=== PATIENT | female | born 1975 | race Caucasian/White ===

== ENCOUNTER 2021-12-20 13:57 | Outpatient (REF) | payer OTHER, SELFPAY ==
--- NOTE | 2021-12-20 16:59 | PFT_ITS ---
FLOWS: FEV1 122% of predicted at 3.06 L. FVC 121% of predicted at 3.78 L. FEV1 to FVC ratio of 0.81. No bronchodilator response. LUNG VOLUMES: Total lung capacity 122% of predicted at 5.46 L. Residual volume 106% of predicted at 1.64 L. Slow vital capacity 131% of predicted at 3.82 L. Expiratory reserve volume 47% of predicted at 0.44 L. Diffusion capacity is normal. IMPRESSION: No obstructive or restrictive ventilatory defect. No bronchodilator response. Essentially normal pulmonary function test. Vladimir Cason MD AP/MODL / [id number]
== END 2021-12-20 13:58 | disposition home or self-care (01) ==
LOC: HO.RESP 13:57
PROVIDERS: PCP Internal Medicine; Visit Provider Hospitalist
DX: J45.40 Moderate persistent asthma, uncomplicated (principal)
CPT/HCPCS: 94060; 94727; 94729

== ENCOUNTER → 2022-01-12 10:55 | Outpatient (BNVA) | payer OTHER, SELFPAY | PROVIDERS: PCP Internal Medicine; Visit Provider Hospitalist | DX: Z23 Encounter for immunization (principal); J45.40 Moderate persistent asthma, uncomplicated; J30.89 Other allergic rhinitis; L30.9 Dermatitis, unspecified; Z80.1 Family history of malignant neoplasm of trachea, bronchus and lung | CPT/HCPCS: 90471; 90677 ==

== ENCOUNTER 2023-02-16 14:20 | Outpatient (AMB) | payer OTHER, SELFPAY ==
[2023-02-16 14:28] VITALS: PULSE 76; O2SAT 97; BMI 33.6
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
== END 2023-02-16 14:41 | disposition home or self-care (01) ==
PROVIDERS: PCP Internal Medicine; Visit Provider Hospitalist
DX: J45.40 Moderate persistent asthma, uncomplicated (principal); J30.89 Other allergic rhinitis; L30.9 Dermatitis, unspecified; Z80.1 Family history of malignant neoplasm of trachea, bronchus and lung
CPT/HCPCS: 99214

== ENCOUNTER → 2023-02-16 14:20 | Outpatient (BNVA) | payer OTHER, SELFPAY | PROVIDERS: PCP Internal Medicine; Visit Provider Hospitalist | DX: J45.40 Moderate persistent asthma, uncomplicated (principal); J30.89 Other allergic rhinitis; L30.9 Dermatitis, unspecified; Z80.1 Family history of malignant neoplasm of trachea, bronchus and lung; Z79.899 Other long term (current) drug therapy; Z23 Encounter for immunization | CPT/HCPCS: 90471; 90686 ==

== ENCOUNTER 2024-02-22 14:23 | Outpatient (AMB) | payer OTHER, SELFPAY ==
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
[2024-02-22 14:30] VITALS: BP 122/70; PULSE 70; O2SAT 98
== END 2024-02-22 15:08 | disposition home or self-care (01) ==
PROVIDERS: PCP Internal Medicine; Visit Provider Hospitalist
DX: J45.40 Moderate persistent asthma, uncomplicated (principal); J30.89 Other allergic rhinitis; L30.9 Dermatitis, unspecified; Z80.1 Family history of malignant neoplasm of trachea, bronchus and lung; Z23 Encounter for immunization
CPT/HCPCS: 99214

== ENCOUNTER → 2024-02-22 14:23 | Outpatient (BNVA) | payer OTHER, SELFPAY | PROVIDERS: PCP Internal Medicine; Visit Provider Hospitalist | DX: J45.40 Moderate persistent asthma, uncomplicated (principal); J30.89 Other allergic rhinitis; L30.9 Dermatitis, unspecified; Z80.1 Family history of malignant neoplasm of trachea, bronchus and lung; Z23 Encounter for immunization | CPT/HCPCS: 90471; 90656 ==

== ENCOUNTER 2025-01-14 14:13 | Outpatient (AMB) | payer OTHER, SELFPAY ==
[2025-01-14 14:19] VITALS: BP 112/82; PULSE 78; O2SAT 99; BMI 32.6
--- NOTE | 2025-01-14 14:19 | A.OFFVIS_ITS ---
Vital Signs 01/14/25 14:19 Height 5 ft Weight 167 lb 1.766 oz BMI 32.6 BP 112/82 Blood Pressure Location Lt brachial Position Sitting Pulse 78 Pulse Source Pulse Oximeter Pulse Oximetry (%) 99 Oxygen Delivery Method Room Air Intake Visit Reasons: Diabetes Intake Note: New patient externally referred by PCP for T2DM. Last Diabetic Eye exam: Last exam was in 12/2024 Last Podiatry Visit: Doesn't have one Random Glucose: 94 mg/dl Hgb A1C: 5.7% Signals Intelligence Analysis Manager Required: No Accompanied by: Self / Same As Patient Allergies No Known Allergies Allergy (Verified 01/14/25 14:24) HPI Comments Details: 49-year-old female with a past medical history of prediabetes, anxiety, asthma, hyperlipidemia , PCOS presenting for new patient visit for prediabetes. Her mother has type 2 diabetes. Patient says she has had prediabetes for over 20 years. Previously prescribed metformin which was discontinued due to diarrhea. Patient is not exercising, but she has did start following a low-carbohydrate diet mid September 2024 after A1c increased to 6.4%. She limits portion sizes. She drinks very little alcohol, and she does not smoke. She had a lap band procedure in 2007 which was subsequently removed due to digestive issues. She had a gastric sleeve in 2018 or 2019. Followed by Cardiology for early history of coronary artery disease. She had a negative nuclear stress test. She has a history of IBS so she would like to avoid medications for diabetes if at all possible, and her hemoglobin A1c decreased to 5.7% today. I reviewed labs on her phone which showed creatinine was 1.03 when last checked, and this is normal. In March 2024 LDL cholesterol was 78, total cholesterol 150, HDL 55 and triglycerides 94. ROS: Constitutional: No unexplained weight loss, fever, chills, fatigue or night sw eats. Respiratory: No shortness of breath Cardiovascular: No chest pain Genitourinary: No dysuria, hematuria, urinary frequency. Neurologic: No numbness in the extremities. She has occasional intermittent tingling in toes. This has improved. Skin: No rash Endocrine: No cold or heat intolerance. No polyuria or polydipsia. Physical exam: Constitutional: Alert, in no distress. Neck: Supple, Full range of motion. No lymphadenopathy. No palpable thyroid masses. Respiratory: Clear to auscultation. Cardiovascular: S1 S2 regular. No murmurs. Psychiatric: Normal mood and affect [facility] Medical History (Updated 01/14/25 @ 17:59 by ENRIQUETA Coyne) Obesity (BMI 30-39.9) Prediabetes Mixed hyperlipidemia Family history of lung cancer Eczema Allergic rhinosinusitis Asthma Surgical History (Updated 01/14/25 @ 14:27 by DARSHANA Nye) [place] teeth extracted H/O left wrist surgery History of cholecystectomy LAP-BAND surgery status Family History (Updated 01/14/25 @ 14:29 by DARSHANA Nye) Mother Lung cancer Pancreatic cancer Colon cancer Diabetes COPD (chronic obstructive pulmonary disease) Heart attack Father Bladder cancer Skin cancer Diabetes Social History (Updated 01/14/25 @ 14:29 by DARSHANA Nye) Alcohol intake: current Alcohol intake frequency: holidays/special occasions only Patient Tobacco Use Status: Never used Tobacco Physical Exam Vital Signs: Last Vital Signs Pulse 78 01/14/25 14:19 BP 112/82 01/14/25 14:19 Pulse Ox 99 01/14/25 14:19 Oxygen Delivery Method Room Air 01/14/25 14:19 BMI result Body Mass Index 32.6 Results AMB Hemoglobin A1c AMB Hemoglobin A1c 5.7 % Last Edit by DARSHANA Nye on 01/14/25 15:16 Results Reviewed Results Reviewed: Laboratory Last Values Glucose (Clinic) 94 mg/dL (60-115) 01/14/25 14:32 Hgb A1c (Clinic) 5.7 % (4.0-6.0) 01/14/25 15:15 Assessment & Plan Assessment & Plan (1) Prediabetes: Code(s): R73.03 - Prediabetes Category: Medical (2) Mixed hyperlipidemia: Code(s): E78.2 - Mixed hyperlipidemia Category: Medical (3) Obesity (BMI 30-39.9): Code(s): E66.9 - Obesity, unspecified Category: Medical Plan In summary this is a 49-year-old female with a past medical history of obesity with comorbidities of prediabetes and hyperlipidemia who presented for evaluation of prediabetes. Congratulated the patient on the progress she has made with lifestyle modifications. Hemoglobin A1c decreased from 6.4% to 5.7%. We discussed GLP ones and metformin, but at this time the decision was made to defer medication since A1c has improved, and she has IBS and may be at increased risk of side effects to these types of medications. Defers referral to dietitian since currently she is losing weight and blood sugars improved. She will continue atorvastatin for hyperlipidemia. Followed by Cardiology. Re- evaluate labs prior to next visit. Follow up in 6 months for prediabetes. Orders: Orders Lipid Panel Today E78.2 - Mixed hyperlipidemia, E78.5 - Hyperlipidemia, unspecified, R73.03 - Prediabetes Microalbumin, Random (w Creat) Today E11.9 - Type 2 diabetes mellitus without complications, E78.2 - Mixed hyperlipidemia, R73.03 - Prediabetes Comprehensive Met. Panel Today E78.2 - Mixed hyperlipidemia, R73.03 - Prediabetes Hemoglobin A1c Today E78.2 - Mixed hyperlipidemia, R73.03 - Prediabetes, R73.9 - Hyperglycemia, unspecified AMB Hemoglobin A1c Today R73.03 - Prediabetes, Z13.9 - Encounter for screening, unspecified Coding Level of Care Code New Pt Level 4 (30340) Complex visit Add On G2211 Diagnoses Prediabetes R73.03 Mixed hyperlipidemia E78.2 Obesity (BMI 30-39.9) E66.9
[2025-01-14 14:36] LABS: Glucose, Whole Blood 94 mg/dL (60-115)
--- OUTSIDE RECORDS SUMMARY | 2025-01-14 20:11 | XMS_ITS | Clinical Summary ---
Author Organization [facility] [address] [facility] Address [address] [place] [address] Phone Care Team Providers Care Aquatics Specialist Name Role Phone Ramon Elias MD Primary Care Provider [phone] Allergies No known active allergies Medications Valtrex 1 gram tablet See Instructions, PRN cold sores, 2 tablet By Mouth Every 12 hours, # 4 each, 11 Refills, Soft Stop, 07/25/23 4:47:00 PM EDT, [facility], 153, cm, 02/27/23 13:33:00 EST, Height 4 Active montelukast (SINGULAIR) 10 mg tablet Take 1 tablet (10 mg total) by mouth. 4 Active LORazepam (ATIVAN) 1 mg tablet Take 1 tablet (1 mg total) by mouth. 4 Active lansoprazole (PREVACID) [address] capsule See Instructions, TAKE 1 CAPSULE (30 MG) BY MOUTH 2 TIMES A DAY, # 180 capsule, 1 Refills, Maintenance, 09/27/23 6:35:00 AM EDT, [facility], 153, cm, 02/27/23 13:33:00 EST, Height 4 Active lamoTRIgine (LaMICtal) 25 mg tablet Take 1 tablet (25 mg total) by mouth. 5 Active LACTOBACILLUS ACIDOPHILUS ORAL Take 1 capsule by mouth daily. Active fluvoxaMINE (LUVOX) 100 mg tablet 5 Active cyclobenzaprine (FLEXERIL) 10 mg tablet Take 1 tablet (10 mg total) by mouth once daily as needed. Active chlorhexidine (PERIDEX) 0.12 % solution 15 mL once daily as needed. 4 Active busPIRone (BUSPAR) 10 mg tablet 5 Active budesonide-form oteroL (SYMBICORT) 160-4.5 mcg/actuation inhaler 5 Active atorvastatin (LIPITOR) 40 mg tablet Take 1 tablet (40 mg total) by mouth daily. 4 Active albuterol HFA (PROAIR HFA ; PROVENTIL HFA ; VENTOLIN HFA) 90 mcg/actuation inhaler Inhalation Active polyethylene glycol (Golytely) 236-22.74-6.74 -5.86 gram solution Take 4L by mouth once for one dose. May substitue any PEG. Starting at 6PM the night before your procedure drink 1 8oz glasses at your own pace until you complete half of the gallon. Finish 2nd half of the gallon 5 hours before your procedure. 4000 mL 5 Active bisacodyL (DULCOLAX) 5 mg EC tablet Take 2 tablets by mouth right before beginning bowel prep. See instructions provided by the office 2 tablet 5 Active polyethylene glycol (MIRALAX) 17 gram packet Empty 8 ounces of Miralax into 128 ounces (1 gallon) of Gatorade, mix well. Starting at 4pm the night before procedure drink as tolerated until half of the total amount is completed. Give 4 hours break, then finish the remainder 227 g 5 Active Surgical History Surgery Date Site/Laterality Comments CHOLECYSTECTOMY 02/06/2009 - 02/05/2010 LAPAROSCOPIC GASTRIC BANDING 02/07/2008 - 02/05/2009 Medical History Medical History Date Comments GERD (gastroesophageal reflux disease) Asthma Hyperlipidemia Migraines Obesity PCOS (polycystic ovarian syndrome) Urticaria Family History Medical History Relation Name Comments bladder cancer Father Colon cancer Mother Coronary artery disease Mother Relation Name Status Comments Father Mother Social History Tobacco Use Types Packs/Day Years Used Date Smoking Tobacco: Never Smokeless Tobacco: Never Tobacco Cessation:Counseling Given: Not Answered Alcohol Use Standard Drinks/Week Comments Not Currently 0 (1 standard drink = 0.6 oz pur e alcohol) Comments Unknown Sex and Gender Information Value Date Recorded Sex Assigned at Not on file Legal Sex Female 10:51 AM EST Gender Identity Not on file Sexual Orientation Not on file Last Filed Vital Signs Vital Sign Reading Time Taken Comments Blood Pressure - - Pulse - - Temperature - - Respiratory Rate - - Oxygen Saturation - - Inhaled Oxygen Concentration - - Weight 80.3 kg (177 lb) 04/04/2024 8:55 AM EST Height 152.4 cm (5') 04/04/2024 8:55 AM EST Body Mass Index 34.57 04/04/2024 8:55 AM EST Plan of Treatment Health Maintenance Due Date Last Done Comments Breast Cancer Screening 1974 Drug Screen 1974 Non-Opioid Controlled Substance Agreement 1974 Hepatitis B Vaccines (1 of 3 - 19+ 3-dose series) 1993 Cervical Cancer Screening: Pap Smear 05/09/1995 DTaP,Tdap,and Td Vaccines (3 - Td or Tdap) 07/27/2022 07/27/2012, 03/21/2002 Depression Screening 02/07/2024 Cholesterol Screening (Lipid Panel) 02/12/2024 09/10/2018 HIV Screening 02/12/2024 Hepatitis C Screening 02/12/2024 Social Influencers of Health Screening 02/12/2024 RSV Immunization Adult Patients (1 - Risk 50-74 years 1-dose series) 2024 Zoster Vaccines (1 of 2) 2024 COVID-19 Vaccine ( - 2024- season) 2024 Influenza Vaccine (#1) 2024 , 02/16/2023, 11/08/2021, Additional history exists Colorectal Cancer Screening: Colonoscopy 05/15/2034 05/15/2024 MMR Vaccines Aged Out 04/06/2002 No longer eligi ble based on patient's age to complete this topic Pneumococcal Vaccine: 50+ Years Completed 01/12/2022, 07/27/2012 HIB Vaccines Aged Out No longer eligi ble based on patient's age to complete this topic HPV Vaccines Aged Out No longer eligi ble based on patient's age to complete this topic Hepatitis A Vaccines Aged Out No long er eligible based on patient's age to complete this topic IPV Vaccines Aged Out No longer eligi ble based on patient's age to complete this topic Meningococcal ACWY Vaccine Aged Out N o longer eligible based on patient's age to complete this topic Meningococcal B Vaccine Aged Out No l onger eligible based on patient's age to complete this topic RSV Immunization Patients Under 20 months Aged Out No longer eligible based on patient's age to complete this topic Varicella Vaccines Aged Out No longer eligible based on patient's age to complete this topic Procedures Procedure Name Priority Date/Time Associated Diagnosis Comments EXTERNAL COLONOSCOPY REPORT Routine 05/15/2024 11:21 AM EDT from Last 3 Months or Most Recently Relevant to Health Maintenance Results * External Colonoscopy Report (05/15/2024 11:21 AM EDT) Anatomical Region Laterality Modality Endoscopy Historical Provider GI~PROCEDURE ORDERABLES F inal Result from Last 3 Months or Most Recently Relevant to Health Maintenance Insurance Care Teams Aquatics Specialist Relationship Specialty Start Date End Date Ramon Elias MD [address] [place] [phone] PCP - General Internal Medicine 02/13/24
--- OUTSIDE RECORDS SUMMARY | 2025-01-14 20:11 | XMS_ITS | Encounter Summary ---
Author Organization [facility] Address [address] [facility] [address] [address] [place] [address] Phone Care Team Providers Care Marinator Name Role Phone Ramon Elias MD Primary Care Provider [phone] Encounter Details Date Type Department Care Team (Latest Contact Info) Description 06/22/2017 Transcribe Orders [facility] [address], [address] [place] [id number] Toni Joseph MD [address] [address] [email or web address] Pure hypercholesterolemia (Primary Dx) Social History Tobacco Use Types Packs/Day Years Used Date Smoking Tobacco: Never Assessed Comments Unknown Sex and Gender Information Value Date Recorded Sex Assigned at Not on file Legal Sex Female 10:30 PM EDT Gender Identity Not on file Sexual Orientation Not on file documented as of this encounter Plan of Treatment Upcoming Encounters Date Type Department Care Team (Late st Contact Info) Description 04/03/2025 10:20 AM EST Office Visit [facility] [address], [address] [place] [address] Khris Magaña MD 22 [facility], [address] [address] documented as of this encounter Visit Diagnoses Diagnosis Pure hypercholesterolemia- Primary documented in this encounter Care Teams Marinator Relationship Specialty Start Date End Date Ramon Elias MD [address] [address] PCP - General 11/24/16 documented as of this encounter Additional Source Comments The information contained in this document represents components of the legal health record. It is not the complete legal health record.[facility]
--- OUTSIDE RECORDS SUMMARY | 2025-01-14 20:11 | XMS_ITS | Encounter Summary ---
Author Organization [facility] Address [address] [place] [address] Care Team Providers Care Senior Communications Engineer Name Role Phone Ramon Elias MD Primary Care Provider [phone] Encounter Details Date Type Department Care Team (Late st Contact Info) Description 05/16/2024 Lab Requisition [facility] - Main Lab [address] [facility] [place] [phone] Pricila Narvaez MD [address] [facility] [address] [place] [address] Gastro-esophageal reflux disease without esophagitis; Encounter for screening for malignant neoplasm of colon Social History Tobacco Use Types Packs/Day Years Used Date Smoking Tobacco: Never Smokeless Tobacco: Never Alcohol Use Standard Drinks/Week Comments Not Currently 0 (1 standard drink = 0.6 oz pur e alcohol) Comments Unknown Sex and Gender Information Value Date Recorded Sex Assigned at Not on file Legal Sex Female 10:51 AM EST Gender Identity Not on file Sexual Orientation Not on file documented as of this encounter Progress Notes * Pricila Narvaez MD - 05/16/2024 10:15 AM EDT The stomach and esophagus biopsies were unremarkable. No significant inflammation and no H. Pylori.One of the colon polyps that were removed was precancerous. Repeat colonoscopy in 7 years. documented in this encounter Plan of Treatment Not on file documented as of this encounter Procedures Procedure Name Priority Date/Time Associated Diagnosis Comments TISSUE EXAM Routine 05/15/2024 Gastro-esophageal reflux disease without esophagitis Encounter for screening for malignant neoplasm of colon documented in this encounter Results * Tissue Exam (05/15/2024) Final Diagnosis A. Stomach, biopsy: - Gastric antral-type mucosa with focal chronic inflammation and changes suggestive of reactive (chemical) gastropathy. - Gastric oxyntic type mucosa without diagnostic histopathologic change. - No active gastritis and no intestinal metaplasia identified.. - No Helicobacter pylori identified on hematoxylin and eosin stained sections. B. Esophagus, biopsy: - Esophageal squamous mucosa without diagnostic histopathologic change. - No intraepithelial eosinophils and no glandular epithelium identified. C. Polyp, ascending colon, polypectomy: - Tubular adenoma. D. Polyp, descending colon, polypectomy: - Few dilated and irregularly-shape d glands, suggestive of a diminutive hyperplastic polyp. 05/17/2024 9:41 AM T [facility] at 0941 EDT Clinical Information Follow-up of gastro-esophageal reflux disease R/O Helicobacter pylori R/O Eosinophilic esophagitis Screening for colorectal malignant neoplasm Polyp 05/17/2024 9:41 AM EDT [facility] Gross Description A. Gastric, Body, biopsy: Labeled gastric biopsy . Received in formalin are three irregular brizuela mucosal tissue fragments, each measuring approximately 0.2 cm in greatest dimension, which are wrapped in paper and submitted in toto in one cassette, three pieces, multiple levels on one slide. B. Esophagus, biopsy: Labeled esophagus biopsy . Received in formalin are three irregular brizuela-white mucosal tissue fragments, each measuring approximately 0.2 cm in greatest dimension, which are wrapped in paper and submitted in toto in one cassette, three pieces, multiple levels on one slide. C. Large Intestine, Right/Ascending Colon, polyp: Labeled ascending colon polyp . Received in formalin is a 0.3 cm irregular brizuela mucosal tissue fragment which is wrapped in paper and submitted in toto in one cassette, one piece, multiple levels on one slide. D. Large Intestine, Left/Descending Colon, polyp: Labeled descending colon polyp . Received in formalin is a 0.4 cm irregular brizuela mucosal tissue fragment which is wrapped in paper and submitted in toto in one cassette, one piece, multiple levels on one slide. TOMMIE 05/17/2024 9:41 AM EDT [facility] Disclaimer Unless otherwise specified, all tissue is 10% NB formalin fixed and paraffin embedded. 05/17/2024 9:41 AM EDT [facility] Tissue Descending colon structure / Unknown 05/15/2024 05/16/2024 10:25 AM EDT Tissue specimen (specimen) Esophageal structure / Unknown 05/15/2024 05/16/2024 10:25 AM EDT Tissue specimen (specimen) Ascending colon structure / Unknown 05/15/2024 05/16/2024 10:25 AM EDT Tissue specimen (specimen) Descending colon structure / Unknown 05/15/2024 05/16/2024 10:25 AM EDT Pricila Narvaez MD LAB PATHOLOGY ORDERABLES Final Result [facility] [address] [place] [address], documented in this encounter Visit Diagnoses Diagnosis Gastro-esophageal reflux disease without esophagitis Encounter for screening for malignant neoplasm of colon documented in this encounter Care Teams Senior Communications Engineer Relationship Specialty Start Date End Date Ramon Elias MD [facility] [address] [phone] PCP - General Internal Medicine 02/13/24 documented as of this encounter
--- OUTSIDE RECORDS SUMMARY | 2025-01-14 20:11 | XMS_ITS | Clinical Summary ---
Author Organization [facility] Address [address] [facility] [address] [place] [address] Phone Care Team Providers Care Box Office Manager Name Role Phone Ramon Elias MD Primary Care Provider [phone] Allergies Active Allergy Reactions Criticality Noted Date Comments Doxycycline GI Upset 03/21/2022 Paroxetine Hcl Other (See Comments) 03/21/2022 Medications albuterol 90 mcg/actuation inhaler Inhalation Active Lactobacillus acidophilus Cap Take 1 capsule by mouth daily. Orally Active Medication-Free Text Fiber 600 MG Tablet, Sig: Orally Active lansoprazole (PREVACID) 15 MG capsule Take 15-30 mg by mouth daily. Active montelukast (SINGULAIR) 10 mg tablet Take 1 tablet by mouth every evening. Active citalopram (CELEXA) 40 MG tablet Take 40 mg by mouth daily. Active LORazepam (ATIVAN) 1 MG tablet Take 1 mg by mouth daily. 10/23/19 21 Active budesonide-formoterol (SYMBICORT) 160-4.5 mcg/actuation inhaler Inhale 2 puffs into the lungs 2 (two) times a day. 02/08/19 23 Active busPIRone (BUSPAR) 5 MG tablet Take 5 mg by mouth daily. 05/06/19 24 Active chlorhexidine (PERIDEX) 0.12 % solution Swish and spit 15 mL as needed. 04/17/19 24 Active cyclobenzaprine (FLEXERIL) 10 MG tablet Take 10 mg by mouth as needed for muscle spasms. Active lamoTRIgine (LAMICTAL) 25 MG IMMEDIATE release tablet Take 25 mg by mouth daily. 03/08/19 25 Active atorvastatin (LIPITOR) 40 MG tabletIndications:Pure hypercholesterolemia Take 1 tablet (40 mg total) by mouth every morning. 90 tablet 3 09/25/19 25 Active Active Problems Problem Noted Date Diagnosed Date Family history of ischemic heart disease (IHD) 0 06/15/2017 Assessment & Plan (09/10/2018 9:34 AM EDT): Blood pressure was mildly elevated today. I have encouraged her to get a home machine and begin to monitor at home while at rest 2 or 3 times a week. If she does achieve significant weight loss early her blood pressure will very likely improve as well her lipids. ECG today reveals a sinus rhythm at 71 and is a normal tracing. Pure hypercholesterolemia 06/15/2017 Assessment & Plan (10/08/2019 10:21 AM EDT): I have discontinued her simvastatin and placed her on atorvastatin at 40 mg. I have asked her to have her labs repeated in about 2 or 3 months. Her next follow-up here will be in about 6 months with 1 of my colleagues as I will have retired on 06 February Assessment & Plan (04/10/2019 8:58 AM EST): LDL is now at goal. I strongly encouraged her to remain active and would like to see her again in 6 months. I will have her labs repeated then. Assessment & Plan (09/10/2018 9:33 AM EDT): She will have her labs drawn today. Goal is LDL under 100. Assessment & Plan (02/23/2018 10:19 AM EST): I am going to push her simvastatin to 40 mg and see if I get her LDL at least under 100. She is going to continue to lose weight and should her numbers fall over time this could be readjusted unless she becomes a diabetic. I will have her numbers repeated in several months and she will return in 6 months. Assessment & Plan (08/23/2017 10:12 AM EDT): Remains on her statin. LDL has improved from about 120-105. HDL is 47 and triglycerides 133. Creatinine is normal at 0.8 and LFTs are normal as well. I am going to leave things at this level for now and will repeat her numbers in about 6 months. Immunizations No known immunizations Family History Medical History Relation Comments Heart attack Mother Relation Status Comments Mother Social History Tobacco Use Types Packs/Day Years Used Date Smoking Tobacco: Never Smokeless Tobacco: Never Tobacco Cessation:Counseling Given: Not Answered Alcohol Use Standard Drinks/Week Comments Yes 0 (1 standard drink = 0.6 oz pur e alcohol) once in awhile Education Answer Date Recorded Are you interested in more education? Not on michael e 06/03/2022 Are you concerned about learning? Not on file 06/03/2022 No 06/03/2022 No 06/03/2022 Digital Access Answer Date Recorded No 07/04/2022 No 07/04/2022 Reliable internet access at home? Not on file 07/04/2022 Device with a working camera? Not on file Comments Unknown Sex and Gender Information Value Date Recorded Sex Assigned at Not on file Legal Sex Female 10:30 PM EDT Gender Identity Not on file Sexual Orientation Not on file Last Filed Vital Signs Vital Sign Reading Time Taken Comments Blood Pressure 136/86 05/27/2024 8:56 AM EDT Pulse 68 05/13/2024 10:36 AM EDT Temperature - - Respiratory Rate - - Oxygen Saturation 96% 05/27/2024 8:00 AM EDT Inhaled Oxygen Concentration - - Weight 79.8 kg (176 lb) 03/21/2022 2:33 PM EST Height 152.4 cm (5') 05/13/2024 10:36 AM EDT Body Mass Index 34.37 03/21/2022 2:33 PM EST Plan of Treatment Upcoming Encounters Date Type Department Care Team (Late st Contact Info) Description 04/03/2025 10:20 AM EST Office Visit [facility] [address] [place] [address] [address], [address] [place] [address] Khris Magaña MD [address] [facility], [address] [place] [address] Health Maintenance Due Date Last Done Comments DEPRESSION SCREENING 1986 HEPATITIS C SCREENING 1992 HIV ONE-TIME SCREENING (18-65 YEARS) 1992 PAP SMEAR 05/09/1995 PNEUMOCOCCAL VACCINES (50+ years) (2 of 2 - PCV) 07/27/2013 07/27/2012 MAMMOGRAM 2014 COLOGUARD 05/09/2019 COLONOSCOPY 05/09/2019 COLORECTAL CANCER SCREENING 05/09/2019 FIT TEST 05/09/2019 FOBT 05/09/2019 SIGMOIDOSCOPY 05/09/2019 VIRTUAL COLONOSCOPY 05/09/2019 SCREENING FOR DIABETES 09/10/2021 09/10/2018 Adult Td,Tdap Booster 07/27/2022 07/27/2012, 003 LIPID PANEL 09/11/2023 09/10/2018 RSV VACCINE (1 - Risk 50-74 years 1-dose series) 2024 ZOSTER VACCINES (1 of 2) 2024 INFLUENZA VACCINE (#1) 2024 2, 02/17/2021, 11/23/2018, Additional history exists COVID-19 VACCINE ( - 2024- season) 2024 SMOKING STATUS SCREENING (Once After 26 Yrs) Completed 05/13/2024 HEPATITIS A VACCINES Aged Out No long er eligible based on patient's age to complete this topic HIB VACCINES Aged Out No longer eligi ble based on patient's age to complete this topic MENINGOCOCCAL VACCINES (ACWY) Aged Out No longer eligible based on patient's age to complete this topic MENINGOCOCCAL VACCINES (B) Aged Out N o longer eligible based on patient's age to complete this topic Medical Devices Not on file Procedures Procedure Name Priority Date/Time Associated Diagnosis Comments LIPID PANEL Routine 09/10/2018 9:43 AM EDT Pure hypercholesterolemia from Last 3 Months or Most Recently Relevant to Health Maintenance Results * Lipid panel (09/10/2018 9:43 AM EDT) HDL 44 mg/dL [facility] Comment: Interpretation <40 mg/dL: Low HDL cholesterol (major risk factor for CHD) Greater than or equal to 60 mg/dL: High HDL cholesterol ( negative risk factor for CHD) HDL - cholesterol is affected by a number of factors, e.g. smoking, excerise, hormones, sex and age. CHOLESTEROL 174 0 - 240 mg/dL [facility] TRIGLYCERIDES 147 30 - 160 mg/dL [facility] LDL 101 50 - 129 mg/dL [facility] Comment: LDL levels in terms of risk for coronary heart disease: <100 mg/dL: Optimal 100-129 mg/dL: Near or above optimal 130-159 mg/dL: Borderline high 160-189 mg/dL: High >190 mg/dL: Very High CARDIAC RISK RATIO 4.0 3.3 - 4.4 C [facility] Blood 09/10/2018 9:43 AM EDT 09/10/2018 9:45 AM EDT us Toni Joseph MD LAB BLOOD BKR ORDERABLES Final Result Performing Organization Address City/State/[facility] Co de Phone Number [facility] [address] [place], [place] [phone] from Last 3 Months or Most Recently Relevant to Health Maintenance Insurance Care Teams Box Office Manager Relationship Specialty Start Date End Date Ramon Elias MD [address] [place] [address] PCP - General 11/24/16 Additional Source Comments The information contained in this document represents components of the legal health record. It is not the complete legal health record.[facility]
== END 2025-01-14 15:17 | disposition home or self-care (01) ==
LOC: HO.ENCR 14:14
PROVIDERS: PCP Internal Medicine; Visit Provider Physician Assistant Medical
DX: R73.03 Prediabetes (principal); E78.2 Mixed hyperlipidemia; E66.9 Obesity, unspecified; Z13.9 Encounter for screening, unspecified

== ENCOUNTER → 2025-01-14 14:13 | Outpatient (BNVA) | payer OTHER, SELFPAY | PROVIDERS: PCP Internal Medicine; Visit Provider Physician Assistant Medical | DX: R73.03 Prediabetes (principal); E78.2 Mixed hyperlipidemia; E66.9 Obesity, unspecified; Z68.32 Body mass index [BMI] 32.0-32.9, adult; Z79.899 Other long term (current) drug therapy | CPT/HCPCS: 82947; 83036 ==